=== PATIENT | female | born 1960 | race Caucasian/White ===

== ENCOUNTER → 2024-07-09 | Outpatient (CLI) | payer MEDICARE, SELFPAY ==
--- NOTE | 2024-07-09 15:52 | CT_ITS ---
STUDY: CT FACIAL BONES WITHOUT CONTRAST REASON FOR EXAM: Female, 64 years old. SINUSITIS RADIATION DOSAGE (If Supplied By Facility): CTDIvol = ( 33.06 ) mGy, DLP = ( 866.91 ) mGycm TECHNIQUE: The patient was scanned in a multi detector CT scanner. Sagittal and coronal images were reconstructed. Individualized dose optimization techniques were used for this CT. COMPARISON: None. FINDINGS: Normal soft tissue structures. Normal orbital tang and orbital contents. Normal nasal bones and anterior nasal spine. Normal facial bones. There is no demonstrated fracture. Nasal septal deviation towards the right side of the midline. There is hypertrophy of the left inferior turbinate. Minimal degree of mucosal thickening along the medial wall of the right maxillary sinus. Minimal degree of mucosal thickening of the right ethmoid sinus. CT/Sinus/Facial Bone IMPRESSION: Minimal degree of mucosal thickening of the mucosa along the medial wall of the right maxillary sinus and the right anterior ethmoid sinus. Hypertrophy of the left inferior turbinate. Nasal septal deviation toward the right side of the midline. Electronically Signed: Doyle Chopra MD at 14:42 EDT ,
== END | disposition home or self-care (01) ==
PROVIDERS: Referring Provider Otolaryngology; Visit Provider Otolaryngology
DX: J32.8 Other chronic sinusitis (principal)
CPT/HCPCS: 70486